=== PATIENT | male | born 1930 | race Caucasian/White ===

== ENCOUNTER → 2018-05-06 | Outpatient (CLI) | payer OTHER ==
[~2018-05-06] MED LIST: ADULT LOW DOSE81 MG; ARIXTRA IJ; ASPIRIN EC81 M1 PO; BENTYL 10 MG CA10 M1 PO; CIPROFLOXACIN500 M1; FLAGYL500 MG; K-DUR10 MEQ PO; LASIX 20 MG TAB20 MG PO; LOPRESSOR PO; LOPRESSOR100 MG PO; LOPRESSOR25; NORCO 5-325 TA1 EACH; ROXICODONE5 M1; VICODIN 5-3001 EACH; VYTORIN 10-201 EACH PO
--- NOTE | 2018-05-06 15:16 | 2DMMODE ---
[place] [address] 2 D/M-MODE ECHOCARDIOGRAM Name: TC ALMAGUER Room: [facility]#: [id number] Admission: 05/06/18 Attend Phys: Anju Mcfadden, Discharge: Date of : [birth year] Date of Service: 05/06/18 1516 Report #: [id number] THIS REPORT FOR: //name// APPROVED REPORT Study performed: 05/06/2018 10:10:18 EXAM: Comprehensive 2D, Doppler, and color-flow Echocardiogram Patient Location: Out-Patient Status: routine BSA: 1.96 HR: 55 bpm BP: 132/65 mmHg Other Information Study Quality: Good Indications CAD Cardiomyopathy 2D Dimensions LVEF(%): 46.53 (>50%) IVSd: 12.53 (7-11mm) LVOT Diam: 20.47 (18-24mm) LVDd: 58.39 mm PWd: 11.29 (7-11mm) Ascending Ao: 31.80 (22-36mm) LVDs: 44.58 (25-40mm) Aortic Root: 31.68 mm Rinaldi's LVEF: 46.53 % Volumes Left Atrial Volume (Systole) LA ESV Index: 19.50 mL/m2 Aortic Valve AoV Peak Tyson.: 1.32 m/s AO Peak Gr.: 6.97 mmHg LVOT Max P.77 mmHg AO Mean Gr.: 3.84 mmHg LVOT Mean P.23 mmHg LVOT Max V: 0.83 m/s AO V2 VTI: 28.69 cm LVOT Mean V: 0.50 m/s MIMI (VTI): 2.07 cm2 LVOT V1 VTI: 18.04 cm Mitral Valve MV Peak Gr.: 4.95 [place] [address] 2 D/M-MODE ECHOCARDIOGRAM Name: TC ALMAGUER Room: [facility]#: [id number] Admission: 05/06/18 Attend Phys: Anju Mcfadden, Discharge: Date of : [birth year] Date of Service: 05/06/18 1516 Report #: [id number] MV Mean Gr.: 2.49 mmHg MV Decel. Time: 213.82 ms MV E Max Tyson.: 0.82 m/s MV PHT: 62.01 ms MVA (PHT): 3.55 cm2 TDI E/Lateral E': 10.25 E/Medial E': 10.25 Medial E' Tyson.: 0.08 m/s Lateral E' Tyson.: 0.08 m/s Pulmonary Valve PV Peak Tyson.: 0.76 m/s PV Peak Gr.: 2.33 mmHg Tricuspid Valve RAP Estimate: 5.00 mmHg TR Peak Gr.: 20.45 mmHg RVSP: 25.45 mmHg PA Pressure: 25.45 mmHg Left Ventricle Left ventricle is mildly dilated. There is global hypokinesis noted. There is normal left ventricular wall thickness. Left ventricular ejection fraction is moderate to severely decreased. LVEF is 30-35%. Grade I - abnormal relaxation pattern. Right Ventricle The right ventricle is normal size. The right ventricular systolic function is normal. Atria The left atrium size is normal. The right atrium size is normal. Aortic Valve The aortic valve is normal in structure. No aortic regurgitation is present. There is no aortic valvular stenosis. Mitral Valve Mitral valve leaflets are calcified. Mild mitral regurgitation. No evidence of mitral valve stenosis. Tricuspid Valve The tricuspid valve is normal in structure. Mild tricuspid regurgitation. No pulmonary hypertension[place] [address] 2 D/M-MODE ECHOCARDIOGRAM Name: LAURAJENNIFERTC Jeison Room: [facility]#: [id number] Admission: 05/06/18 Attend Phys: Anju Mcfadden, Discharge: Date of : [birth year] Date of Service: 05/06/18 1516 Report #: [id number] The pulmonary valve is normal in structure. Mild pulmonic regurgitation. Great Vessels The aortic root is normal in size. IVC is normal in size and collapses with >50% inspiration Pericardium There is no pericardial effusion. <Conclusion> Left ventricle is mildly dilated. There is normal left ventricular wall thickness. Left ventricular ejection fraction is moderate to severely decreased. LVEF is 30-35%. Grade I - abnormal relaxation pattern. There is global hypokinesis noted. Mild mitral regurgitation. Mild tricuspid regurgitation. No pulmonary hypertension. Mild pulmonic regurgitation. <ELECTRONICALLY SIGNED> By: Sandor Mederos MD, FACC 05/06/18 151 15 15 Sandor Mederos MD, FACC /INF
== END ==
LOC: M.CRD 05-05 09:00
DX: I08.1 Rheumatic disorders of both mitral and tricuspid valves (principal); I25.10 Atherosclerotic heart disease of native coronary artery without angina pectoris; I25.5 Ischemic cardiomyopathy

== ENCOUNTER 2019-08-11 17:47 | Inpatient (IN) | payer OTHER ==
[~2019-08-11] VITALS: Ht 162.6 cm; Wt 80.7 kg
[2019-08-11 17:50] VITALS: BP 141/86
[2019-08-11] MEDS ORDERED: FUROSEMIDE 40 M40 MG PO (18:02)
[2019-08-11] MEDS ORDERED: ROSUVASTATIN CA10 MG PO (18:03)
[2019-08-11] MEDS ORDERED: VITAMIN D310 MC1 PO (18:03)
[2019-08-11] MEDS ORDERED: SPIRONOLACTONE25 MG PO (18:03)
[2019-08-11] MEDS ORDERED: POTASSIUM GLUC500 MG PO (18:04)
[2019-08-11 18:14] LABS: ABSOLUTE BASOPHILS 0.1 thou/uL (0.0-0.2); ABSOLUTE EOSINOPHILS 0.1 thou/uL (0.0-0.7); ABSOLUTE LYMPHOCYTES 1.4 thou/uL (0.8-5.3); ABSOLUTE MONOCYTES 1.2 thou/uL (0.0-1.2); ABSOLUTE NEUTROPHILS 7.1 thou/uL (1.6-8.1); BASOPHILS 0.9 %; EOSINOPHILS 0.5 %; HEMATOCRIT 38.2 % (42.0-52.0); HEMOGLOBIN 12.9 gm/dL (14.0-18.0); LYMPHOCYTES 14.2 %; MCH 31.9 pg (26.0-34.0); MCHC 33.9 g/dL (28.0-37.0); MONOCYTES 12.2 %; MPV 8.4 fl. (7.2-11.1); NUCLEATED RBCS 0 /100WBC; PLATELET COUNT* 140 thou/uL (150-400); POLYS 72.2 %; RBC 4.06 mil/uL (4.50-6.00); RDW-CV 14.5 % (10.5-14.5); WBC 9.9 thou/uL (4.0-11.0)
[2019-08-11 18:27] LABS: APTT 29.2 Seconds (25.0-31.3); PROTIME 10.7 Seconds (9.20-11.50)
[2019-08-11 18:59] LABS: CREATININE 1.9 mg/dL (0.6-1.3); POTASSIUM 4.6 mmol/L (3.5-5.1)
[2019-08-11 19:05] LABS: ALBUMIN 3.8 g/dL (3.4-5.0); TOTAL BILIRUBIN 1.4 mg/dL (<0.1-1.0); TOTAL PROTEIN 7.4 g/dL (6.4-8.2)
[2019-08-11 20:49] VITALS: BP 134/84
[2019-08-11 21:07] VITALS: BP 110/74
[2019-08-12] VITALS: BP 104/62
[2019-08-12 04:00] VITALS: BP 116/69
--- NOTE | 2019-08-12 07:44 | NUR ---
PT ADMITTED TO ROOM 212 DURING BOTTLE DEALER; VSS, A+OX4, ROOM AIR, SR+BBB, UP AD JUDSON. 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 HE HAS DENIED THE NEED FOR PAIN MEDICATION UP TO THIS TIME. HE HAS BEEN NPO SINCE MIDNIGHT FOR A CARDIOLOGY CONSULT LATER THIS AM.
[2019-08-12 08:00] VITALS: BP 122/51
[2019-08-12 11:44] VITALS: BP 110/53
--- NOTE | 2019-08-12 12:57 | NUR ---
Pt is A&O. Pt resides at [facility] in [place] with his . Pt is independent. Pt states that they prepare most of their meals, there is a dining area that they can go to if they want. [facility] provides cleaning every 2 weeks. No DME. No hx of HH or SNF. Supportive family. Goal is home at [place]. No needs anticipated.
--- NOTE | 2019-08-12 13:52 | 2DMMODE ---
[place] [address] 2 D/M-MODE ECHOCARDIOGRAM Name: TC ALMAGUER Room: [address] IN [facility]#: [id number] Admission: 08/11/19 Attend Phys: Bijal elaine Sa Discharge: Date of : [birth year] Date of Service: 08/12/19 1352 Report #: [id number] THIS REPORT FOR: //name// APPROVED REPORT Study performed: 08/12/2019 11:20:47 EXAM: Comprehensive 2D, Doppler, and color-flow Echocardiogram Patient Location: In-Patient Room #: [facility] BSA: 1.85 HR: 91 bpm BP: 122/51 mmHg Other Information Study Quality: Good Indications Congestive Heart Failure Dyspnea Elevated Troponin 2D Dimensions IVSd: 11.02 (7-11mm) LVOT Diam: 22.11 (18-24mm) LVDd: 59.03 mm PWd: 10.72 (7-11mm) Ascending Ao: 34.31 (22-36mm) LVDs: 49.48 (25-40mm) Aortic Root: 35.09 mm Volumes Left Atrial Volume (Systole) LA ESV Index: 68.60 mL/m2 Aortic Valve AoV Peak Tyson.: 1.46 m/s AO Peak Gr.: 8.52 mmHg LVOT Max P.14 mmHg AO Mean Gr.: 4.87 mmHg LVOT Mean P.29 mmHg LVOT Max V: 1.02 m/s AO V2 VTI: 23.61 cm LVOT Mean V: 0.70 m/s MIMI (VTI): 3.30 cm2 LVOT V1 VTI: 20.29 cm Mitral Valve MV Decel. Time: 132.39 ms MV PHT: 38.39 [place] [address] 2 D/M-MODE ECHOCARDIOGRAM Name: TC ALMAGUER Room: [address] IN ..#: [id number] Admission: 08/11/19 Attend Phys: Biajl elaine Discharge: Date of : [birth year] Date of Service: 08/12/19 1352 Report #: [id number] MVA (PHT): 5.73 cm2 TDI Medial E' Tyson.: 0.12 m/s Lateral E' Tyson.: 0.17 m/s Pulmonary Valve PV Peak Tyson.: 0.83 m/s PV Peak Gr.: 2.78 mmHg Tricuspid Valve RAP Estimate: 5.00 mmHg TR Peak Gr.: 22.03 mmHg RVSP: 27.00 mmHg PA Pressure: 27.00 mmHg Left Ventricle Left ventricle is mildly dilated. There is diffuse hypokinesis of left ventricular wall motion. There is normal left ventricular wall thickness. Left ventricular systolic function is severely decreased. LVEF is 25%. Right Ventricle The right ventricle is normal size. The right ventricular systolic function is normal. Atria Left atrium is moderately dilated. The right atrium size is normal. Aortic Valve Mild aortic valve sclerosis. No aortic regurgitation is present. There is no aortic valvular stenosis. Mitral Valve The mitral valve is normal in structure. Mild mitral regurgitation. No evidence of mitral valve stenosis. Tricuspid Valve The tricuspid valve is normal in structure. Trace tricuspid regurgitation. No pulmonary hypertension. Pulmonic Valve The pulmonary valve is normal in structure. There is no pulmonic valvular regurgitation. Great Vessels The aortic root is normal in size. IVC is [place] [address] 2 D/M-MODE ECHOCARDIOGRAM Name: TC ALMAGUER Room: [address] IN .R.#: [id number] Admission: 08/11/19 Attend Phys: Bijal elaine Sa Discharge: Date of : [birth year] Date of Service: 08/12/19 1352 Report #: [id number] collapses >50% with inspiration. Pericardium There is no pericardial effusion. Left pleural effusion. <Conclusion> Left ventricle is mildly dilated. There is normal left ventricular wall thickness. Left ventricular systolic function is severely decreased. LVEF is 25%. The right ventricle is normal size. The right ventricular systolic function is normal. Left atrium is moderately dilated. The right atrium size is normal. Mild aortic valve sclerosis. No aortic regurgitation is present. There is no aortic valvular stenosis. The mitral valve is normal in structure. Mild mitral regurgitation. The tricuspid valve is normal in structure. IVC is normal in size and collapses >50% with inspiration. There is no pericardial effusion. There is diffuse hypokinesis of left ventricular wall motion. <ELECTRONICALLY SIGNED> By: Huey Yeung MD, FACC 08/12/19 1352 1352 135 Huey Yeung MD, FACC /INF
--- NOTE | 2019-08-12 14:05 | EKG ---
[place] [address] ELECTROCARDIOGRAM REPORT Name: TC ALMAGUER Room: [address] ADM IN M.R.#: [id number] Admission: 08/11/19 Attend Phys: Bijal Tena Discharge: Date of : [birth year] Report #: [id number] THIS REPORT FOR: //name// [facility] ED Test Date: 2019-08-11 Test Time: 17:56:31 Pat Name: TC ALMAGUER Department: Room: [facility] Gender: M Barrel Header: CLINT : 1930 Requested By: Conner Spencer Order Number: [id number] MD: Huey Yeung Measurements Intervals [place] Rate: 99 P: 0 CA: 153 QRS: 129 QRSD: 141 T: 114 QT: 276 QTc: 355 Interpretive Statements Sinus tachycardia with first degree block Multiform ventricular premature complexes RBBB and LPFB Anteroseptal infarct, age indeterminate Baseline wander in lead(s) III,aVL Compared to ECG 09/21/2012 09:24:52 Ventricular premature complex(es) now present Left posterior fascicular block now present Sinus rate has increased First degree AV block persists Left-axis deviation no longer present Myocardial infarct finding still present Electronically Signed On 08-12-2019 14:04:59 JIG BORE OPERATOR by Huey Yeung [email or web address] <ELECTRONICALLY SIGNED> By: Huey Yeung MD, [facility] 08/12/19 1404 1756 1756 Huey Yeung MD, [facility] /EPI
[2019-08-12 16:49] VITALS: BP 98/47
--- NOTE | 2019-08-12 18:19 | NUR ---
PT A/O X4,VSS,INTERNAL REVENUE AGENT IN PLACE.NO C/O PAIN.ECHO COMPLETED.LASIX GIVEN THIS AM.PT WILL BE NPO AT MIDNIGHT FOR STRESS TEST IN AM.PT INFORMED OF NO CAFFEINE OR CHOCOLATE BEFORE STRESS TEST.PT COMMUNICATES UNDERSTANDING.PT AMBULATED IN ROOM THROUGHTOUT SHIFT.HOURLY ROUNDING COMPELTED FOR PT SAFETY.CALL LIGHT WITHIN REACH.WILL CONTINUE TO MONITOR FOR DURATION OF SHIFT.
[2019-08-12 20:14] VITALS: BP 106/50
[2019-08-13] VITALS: BP 122/47
[2019-08-13 04:00] VITALS: BP 106/57
[2019-08-13 05:15] LABS: CALCIUM 8.8 mg/dL (8.5-10.1); CREATININE 2.4 mg/dL (0.6-1.3); POTASSIUM 4.9 mmol/L (3.5-5.1)
--- NOTE | 2019-08-13 07:49 | NUR ---
PT IS ABLE TO COMMUNICATE HIS NEEDS TO STAFF WITH ONLY MINOR DIFFICULTY; HE IS [id number], BUT DOES HAVE HEARING AIDS. HE HAS DENIED THE NEED FOR PAIN MEDICATION UP TO THIS TIME. HE HAS BEEN NPO SINCE MIDNIGHT FOR TENTATIVELY SCHEDULED STRESS TEST LATER TODAY. ECHO SHOWED EF OF LESS THAN 40%, SO CHF CORE MEASURES ARE IN EFFECT; MD IS AWARE. POSSIBLE DISCHARGE LATER TODAY.
[2019-08-13 08:00] VITALS: BP 118/74
--- NOTE | 2019-08-13 08:00 | NUR ---
ASSUMED PT CARE AT 0700, PT A&O X4, UP AD JUDSON, VSS, RA, COMMUNITY HEALTH OUTREACH WORKER TRACING SINUS RHYTHM WITH PVC'S, FULL ASSESSMENT CHARTED. PT TO HAVE NUC MED STRESS TEST THIS SHIFT, PT EDUCATED ON NPO STATUS, TOLERATING WELL WITH WATER ONLY. WILL CONT HOURLY ROUNDING AND POC.
[2019-08-13 12:05] VITALS: BP 111/70
--- NOTE | 2019-08-13 12:54 | CARDNUC ---
[place] [address] CARDIAC NUCLEAR IMAGING REPORT Name: TC ALMAGUER Room: [address] IN [facility]#: [id number] Admission: 08/11/19 Attend Phys: Bijal elaine Sa Discharge: Date of : [birth year] Date of Service: 08/13/19 1253 Report #: [id number] THIS REPORT FOR: //name// APPROVED REPORT Imaging Protocol: Rest Tc-99m/Stress Tc-99m 1 day Study performed: 08/12/2019 11:44:00 Indication: Dyspnea Patient Location: Out-Patient Stress Tech: Jennifer Ayala Stress Nurse: Kelly Guerrero RN Ht: 5 ft 4 in Wt: 176 lbs BSA: 1.85 m2 BMI: 30.20 Medical History Medical History: mi, cabg, cad, pci, htn, chf, cardiomayopathy Medications: none Allergies: penicillin Cardiac Risk Factors: age, htn,former smoker Previous Cardiac Procedures: CABG, PCI, Myocardial infarction Exercise History: Indeterminate Resting Data Rest SPECT myocardial perfusion imaging was performed in supine position 45 minutes following the intravenous injection of 11.6 mCi of Tc-99m Sestamibi. Time of rest injection: 08:00 The images were gated to evaluate regional wall motion and calculate left ventricular ejection fraction. Administration Route: IV Administration Site: Left AC Pharmacologic Stress Pharmacologic stress test was performed by injecting Regadenoson 0.4 mg IV push over 10-15 seconds immediately followed by the intravenous injection of 33.1 mCi of Tc-99m Sestamibi. Time of stress injection: 11.6 Administration Route: IV Administration Site: Left AC Heart Rate at time of stress injection: 103 bpm. Gated Stress SPECT was performed 45 [place] [address] CARDIAC NUCLEAR IMAGING REPORT Name: TC ALMAGUER Room: [address] IN ..#: [id number] Admission: 08/11/19 Attend Phys: Bijal elaine Sa Discharge: Date of : [birth year] Date of Service: 08/13/19 1253 Report #: [id number] injection. The images were gated to evaluate regional wall motion and calculate left ventricular ejection fraction. Stress Test Details Stress Test: Pharmacologic stress testing performed using 0.4 mg of regadenoson per 5 mL given IV over 10 seconds. Reason for pharmacologic stress test: LBBB. HR Max Heart Rate (APMHR): 131 bpm Resting HR: 94 bpm Target HR (85% APMHR): 111 bpm Max HR Achieved: 103 bpm % of APMHR: 78 Recovery HR: 98 bpm BP Resting BP: 111/65 mmHg Max BP: 131/70 mmHg Recovery BP: 126/80 mmHg ECG Resting ECG: Sinus Rhythm, RBBB Stress ECG: Sinus Rhythm, RBBB ST Change: None Arrhythmia: None Recovery ECG: Sinus Rhythm, RBBB Recovery ST Change: None Recovery Arrhythmia: None Clinical Reason for Termination: Completed protocol Exercise duration: 0 min sec Exercise capacity: 1 METs The patient tolerated Lexiscan infusion without significant cardiac symptoms. Stress ECG Conclusion The baseline 12-lead EKG shows sinus rhythm with right bundle-branch block. No acute ST segment abnormalities were noted. EKGs during and post Lexiscan infusion show sinus rhythm and sinus tachycardia with persistent right bundle-branch block. There were no significant ST segment changes when compared to baseline. There were no stress-induced arrhythmias Study Quality Study: Good Artifact: [place] [address] CARDIAC NUCLEAR IMAGING REPORT Name: TC ALMAGUER Room: [address]#: [id number] Admission: 08/11/19 Attend Phys: Bijal elaine Sa Discharge: Date of : [birth year] Date of Service: 08/13/19 1253 Report #: [id number] Study Data At rest, the left ventricular ejection fraction was 25%.. Post stress, the left ventricular ejection was 24%.. TID = 1.06. Perfusion There is a moderate size severe intensity fixed defect of the apex consistent with prior infarct. There is a moderate size basal inferior wall defect that appears slightly more pronounced on stress than resting images suggesting infarct with anupama-infarct ischemia. Wall Motion The left ventricle is dilated. There is severe global hypokinesis with akinesis of the basal inferior wall and apex. Nuclear Conclusion ECG Findings: negative for ischemia Clinical Findings: negative for ischemia Nuclear Findings: positive for ischemia Exercise Capacity: not assessed Left Ventricular Function: abnormal Risk Study: high Perfusion images suggest prior infarct of the apex and basal inferior wall with a region of anupama-infarct ischemia in the inferior wall. Global LV systolic function is severely decreased with wall motion abnormalities as outlined above. This is a high risk study. <Conclusion> The baseline 12-lead EKG shows sinus rhythm with right bundle-branch block. No acute ST segment abnormalities were noted. EKGs during and post Lexiscan infusion show sinus rhythm and sinus tachycardia with persistent right bundle-branch block. There were no significant ST segment changes when compared to baseline. There were no stress-induced arrhythmias <ELECTRONICALLY SIGNED> By: Sandor Mederos MD, FACC 08/13/19 1253 1253 1253 Sandor Mederos MD, FACC /INF
--- NOTE | 2019-08-13 16:03 | NUR ---
ASSUMED CARE OF PT AT APPROXIMATELY 1600. REPORT RECEIVED FROM SALIMA MELISSA. 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 PT TRACING SR WITH BBB AND FIRST DEGREE ON THE FRUIT II FARMWORKER. UP AD JUDSON IN ROOM. ON RA SAT UPPER 90'S. DENIES ANY PAIN OR SHORTNESS OF BREATH. NPO AFTER MIDNIGHT FOR POSSIBLE HEART CATH IN AM. IV FLUIDS INFUSING. MEDICATIONS PER OCT. PT REPOSITIONS SELF. HOURLY ROUNDING OBSERVED. BED IN LOW POSITION. CALL LIGHT WITHIN REACH. WILL CONTINUE PLAN OF CARE.
[2019-08-13 16:34] VITALS: BP 128/76
[2019-08-13 20:39] VITALS: BP 123/69
[2019-08-14] VITALS: BP 89/57
[2019-08-14 04:00] VITALS: BP 104/69
[2019-08-14 08:00] VITALS: BP 120/70
[2019-08-14 08:51] LABS: CALCIUM 8.4 mg/dL (8.5-10.1); CREATININE 2.5 mg/dL (0.6-1.3); POTASSIUM 4.6 mmol/L (3.5-5.1)
--- NOTE | 2019-08-14 08:53 | NUR ---
PT IS ABLE TO COMMUNICATE HIS NEEDS TO STAFF WITH MINOR DIFFICULTY; HE IS [id number], BUT DOES HAVE HEARING AIDS. HE HAS DENIED THE NEED FOR PAIN MEDICATION UP TO THIS TIME. HE HAS REPORTED SOME SORENESS IN HIS THROAT WHICH WAS RELIEVED BY COUGH DROPS. HE HAS BEEN NPO AFTER MIDNIGHT FOR A POSSIBLE CARDIAC CATH LATER TODAY.
[2019-08-14 12:00] VITALS: BP 109/59
[2019-08-14 16:00] VITALS: BP 112/66
[2019-08-14 20:00] VITALS: BP 110/60
[2019-08-15] VITALS: BP 90/54
[2019-08-15 04:00] VITALS: BP 92/56
[2019-08-15 05:33] LABS: CALCIUM 8.2 mg/dL (8.5-10.1); CREATININE 2.4 mg/dL (0.6-1.3); POTASSIUM 4.5 mmol/L (3.5-5.1)
--- NOTE | 2019-08-15 07:53 | NUR ---
ASSUMED CARE OF PT AFTER REPORT AT 1930. PT A&OX4. VSS. PHYSICAL ASSESMENT COMPLETED AND CHARTED. PT ON RA. PT TRACING SR/1ST DEG/BBB ON TELE. PT UPADLIB TO RESTROOM. PT DENIES ANY PAIN. PT ABLE TO SLEEP WELL ON BED. CALL LIGHT WITHIN REACH.
[2019-08-15 08:00] VITALS: BP 101/59
[2019-08-15 08:10] LABS: ABSOLUTE LYMPHOCYTES 0.8 thou/uL (0.8-5.3); ABSOLUTE NEUTROPHILS 7.2 thou/uL (1.6-8.1); BASOPHILS 0.1 %; HEMATOCRIT 32.6 % (42.0-52.0); HEMOGLOBIN 11.2 gm/dL (14.0-18.0); LYMPHOCYTES 9.2 %; MCH 32.5 pg (26.0-34.0); MCHC 34.2 g/dL (28.0-37.0); MCV 94.8 fL (80.0-100.0); MONOCYTES 11.1 %; MPV 8.3 fl. (7.2-11.1); NUCLEATED RBCS 0 /100WBC; PLATELET COUNT* 115 thou/uL (150-400); POLYS 79.6 %; RBC 3.44 mil/uL (4.50-6.00); RDW-CV 14.4 % (10.5-14.5)
[2019-08-15 08:16] LABS: CALCIUM 8.3 mg/dL (8.5-10.1); CREATININE 2.4 mg/dL (0.6-1.3); POTASSIUM 4.3 mmol/L (3.5-5.1)
[2019-08-15 13:59] VITALS: BP 92/48
--- NOTE | 2019-08-15 19:23 | NUR ---
ASSUMED PT CARE AT 0700, VSS, RA, UP AD JUDSON, ENTRY SPECIALIST TRACING SINUS RHYTHM, PVC'S, BBB, FIRST DEGREE AV BLOCK, FULL ASSESSMENT CHARTED. PT EDUCATED ON FLUID RESTRICTION AND STRICT I/O'S, HOURLY ROUNDING COMPLETED.
[2019-08-15 20:00] VITALS: BP 86/48
[2019-08-16] VITALS: BP 90/59
[2019-08-16 04:00] VITALS: BP 98/65
[2019-08-16 04:15] LABS: ABSOLUTE LYMPHOCYTES 0.7 thou/uL (0.8-5.3); ABSOLUTE MONOCYTES 0.9 thou/uL (0.0-1.2); ABSOLUTE NEUTROPHILS 7.2 thou/uL (1.6-8.1); BASOPHILS 0.2 %; EOSINOPHILS 0.2 %; HEMATOCRIT 31.2 % (42.0-52.0); HEMOGLOBIN 10.9 gm/dL (14.0-18.0); LYMPHOCYTES 7.8 %; MCH 32.9 pg (26.0-34.0); MCV 93.9 fL (80.0-100.0); MONOCYTES 10.5 %; MPV 8.3 fl. (7.2-11.1); NUCLEATED RBCS 0 /100WBC; PLATELET COUNT* 105 thou/uL (150-400); POLYS 81.3 %; RBC 3.32 mil/uL (4.50-6.00); RDW-CV 14.2 % (10.5-14.5); WBC 8.8 thou/uL (4.0-11.0)
[2019-08-16 04:30] LABS: ALBUMIN 3.1 g/dL (3.4-5.0); CALCIUM 7.8 mg/dL (8.5-10.1); CREATININE 2.2 mg/dL (0.6-1.3); POTASSIUM 4.3 mmol/L (3.5-5.1); TOTAL BILIRUBIN 2.2 mg/dL (<0.1-1.0); TOTAL PROTEIN 5.9 g/dL (6.4-8.2)
--- NOTE | 2019-08-16 06:00 | NUR ---
PROGRESSING TOWARDS GOALS, C/O SOA X1, OXYGEN 2L PER NC INITATED AND RESOLVED SOA, SAO2 95% ON 2L PER NC, MAINTAINED 1750CC FLUID RESTRICTION 24/HOURS, AWAKE ALERT AND CONVERSATIVE, CALLLIGHT IN REACH, SAFETY MAINTAINED.
[2019-08-16 07:45] VITALS: BP 119/72
[2019-08-16 11:06] LABS: URINE BILIRUBIN NEGATIVE (Negative); URINE BLOOD TRACE (Negative); URINE CLARITY CLEAR; URINE COLOR YELLOW; URINE GLUCOSE-RANDOM NEGATIVE (Negative); URINE KETONES NEGATIVE (Negative); URINE LEUKOCYTES NEGATIVE (Negative); URINE NITRITE NEGATIVE (Negative); URINE PROTEIN NEGATIVE (Negative); URINE SPECIFIC GRAVITY 1.015 (1.005-1.030); URINE UROBILINOGEN 0.2 E.U./dl (0.2-1.0)
[2019-08-16 12:00] VITALS: BP 120/72
[2019-08-16 16:04] VITALS: BP 124/64
[2019-08-16 20:00] VITALS: BP 109/68
--- NOTE | 2019-08-16 20:05 | NUR ---
ASSUMED PT CARE AT 0730, ASSESMENT DONE CHARTED. PT A/O X4, UP AD JUDSON, ON 2L O2 THIS AM, PT ABLE TO TOLERATED RA AT 94%, AMBULATES IN HALLWAY MULTIPLE TIMES TODAY. NO SOA. PT READY TO DC HOME TOMORROW. NPO AFTER MIDNIGHT FOR ABD US TOMORROW. REPORT GIVEN TO RENATA BORREGO.
[2019-08-17] VITALS: BP 102/75
--- NOTE | 2019-08-17 03:24 | NUR ---
PT ALERT ORIENTED ORIENTED. NPO AT ID FOR ABD US. TELEMETRY SHOWS SR BBB 1ST DEGREE AVB PVC. ON 1750ML FR. UP AD JUDSON IN ROOM. ON RA. WCTM
[2019-08-17 04:00] VITALS: BP 111/66
[2019-08-17 05:18] LABS: CALCIUM 7.6 mg/dL (8.5-10.1); CREATININE 1.9 mg/dL (0.6-1.3); POTASSIUM 3.6 mmol/L (3.5-5.1)
[2019-08-17 05:29] LABS: MAGNESIUM 2.1 mg/dL (1.8-2.4)
[2019-08-17 08:00] VITALS: BP 100/53
[2019-08-17] MEDS ORDERED: LIPITOR40 MG PO (11:35)
[2019-08-17] MEDS ORDERED: BUMETANIDE 1 MG1 M1 PO (11:36)
[2019-08-17 12:01] VITALS: BP 126/71
--- NOTE | 2019-08-21 09:24 | CON ---
[address] [address] CONSULTATION Name: TC ALMAGUER Room: [address] IN M.R.#: [id number] Admission: 08/11/19 Attend Phys: Bijal Tena Discharge: 08/17/19 Date of : [birth year] Report #: [id number] THIS REPORT FOR: //name// CC: Bijal Lee Jonah Petitluh DATE OF SERVICE: 08/15/2019 NEPHROLOGY CONSULTATION CONSULTING PHYSICIAN: Dr. Lee. REASON FOR NEPHROLOGY CONSULTATION: Acute kidney injury on possible chronic kidney disease. REASON FOR ADMISSION: Shortness of breath. HISTORY OF PRESENT ILLNESS: This is a very active 89-year-old male who lives with his at [facility] with past medical history of coronary artery disease with reported [place] and CABG, which was 23 years ago, ejection fraction of 30-35%, came in because of increasing shortness of breath, which started about 7 weeks ago. Seven weeks ago, he went to his primary doctor, who put him on Lasix 40 mg a day, which the patient initially took for 3 days, felt relief and his shortness of breath improved, so he was given a prescription for Lasix 40 mg a day. He did lose weight from 190 pounds to 173 pounds in these last several weeks with Lasix, but his breathing, which initially got better, started getting worse again. He tries to watch and eat a low sodium diet. He was not on fluid restriction before coming to the hospital. Here on arrival, his creatinine was 1.9. Back in 2012, his creatinine was 1.2. We do not have any membranes in between. He was started on Lasix 40 mg IV twice a day and creatinine went up from 1.9 to 2.4 and hence Nephrology was consulted and his Lasix was stopped and he was started on gentle hydration with which his creatinine has gone down from 2.5 yesterday, 2.4 today. His shortness of breath is difficult to gauge right now because at rest he does not feel short of breath and he has not been exerting much here in the hospital. He does take Aldactone at home as well. Denies taking any NSAIDs at home. Does not ____ any kidney stones. Renal ultrasound is normal here. He has had TURP done in the past and now he does have to push to get the urine out, but his bladder scan revealed only 182 mL of urine yesterday. He is also on a fluid restriction here. A stress test was done here in this hospitalization and that was negative for ischemia, but his ejection fraction has decreased to 25% this time. In the past, he has refused ICD. He has not been able to tolerate beta blockers because of bradycardia and second-degree heart block in the past and he is not on any ROSEMARIE inhibitor or ARB or has not been on it for reasons unknown. ALLERGIES: [place] [address] CONSULTATION Name: TC ALMAGUER Room: [address] IN M.R.#: [id number] Admission: 08/11/19 Attend Phys: Bijal Tena Discharge: 08/17/19 Date of : [birth year] Report #: [id number] REVIEW OF SYSTEMS: As mentioned in history of present illness, otherwise 10-point review of systems was reviewed and was negative. HOME MEDICATIONS: Include furosemide 1 tablet daily of 40 mg, vitamin D3, spironolactone 25 mg once daily, potassium chloride 500 mg daily, aspirin. PAST MEDICAL AND SURGICAL HISTORY: Includes hypertension, diverticulosis, right shoulder surgery, appendectomy, right and left total knee replacement. Three bypasses in 1983. CABG in 1993, hernia repair, and bowel resection. FAMILY HISTORY: No family history of kidney problem. SOCIAL HISTORY: He lives with his at [facility]. He is a former smoker, does not take alcohol or use illicit drugs. PHYSICAL EXAMINATION: VITAL SIGNS: Blood pressure is 92/56, his pulse was 61, temperature 36.4, respiratory rate was 17, and pulse oximetry was 100% on room air. GENERAL: He is awake, alert, oriented x 3, sitting in chair. HEAD AND EYES: Atraumatic, normocephalic. Normal conjunctivae. EARS, NOSE, AND THROAT: Normal ears and nose. Mucous membranes are moist. NECK: There is JVD. CHEST: Bilaterally diminished breath sounds posteriorly. Crackles heard posteriorly at basal level. CARDIOVASCULAR: S1, S2 normal, no murmurs noted. ABDOMEN: Soft, nondistended, nontender. Bowel sounds present. EXTREMITIES: There is around 2+ edema bilateral ankles. NEUROLOGICAL FUNCTION: Gross neurological function is intact. PSYCHIATRIC: Mood and affect seem to be normal. LABORATORY DATA: His hemoglobin is 12.9 and his platelet count is 140. His sodium is 139, potassium 4.5. His creatinine is 2.4. His BUN is 82 and his CO2 is 26. Other labs are reviewed. IMAGING: Renal ultrasound, chest CT, nuclear stress test and chest x-ray were all reviewed. ASSESSMENT: 1. Acute kidney injury on most likely chronic kidney disease in the setting of decreased ejection fraction, cardiorenal syndrome, this is likely renal vascular congestion. Baseline creatinine is normal, creatinine was 1.9 on admission. We will need to find baseline creatinine. UA has not been checked. Renal imaging was normal, creatinine was 1.9 on admission, went up to 2.5 on diuretic and now it is stable, even with IV fluids. 2. Ischemic cardiomyopathy and runwz-ep-tjrkwyi systolic congestive heart [address] [address] CONSULTATION Name: TC ALMAGUER Room: [address] IN [place].Nestor.#: [id number] Admission: 08/11/19 Attend Phys: Bijal elaine [place] Discharge: 08/17/19 Date of : [birth year] Report #: [id number] failure, ejection fraction has decreased from before, where it used to be 30-35% and now 25%. Stress test demonstrates prior infarction with anupama-infarct ischemia and angiogram is being deferred to a later time until his kidney function gets better. 3. Dyslipidemia. He is on a statin. 4. Hypertension. Blood pressure is currently running slightly on the lower side. He is on Imdur currently. PLAN: 1. The patient currently looks hypervolemic and I will be stopping the IV fluids. 2. I have changed his fluid restriction to 1750 mL a day. 3. He should be on 2 g sodium diet and strict I's and O's should be recorded. 4. The patient was not retaining urine. 5. Initiated him on Bumex 1 mg twice a day, diuretic always looks better on twice a day regimen and his creatinine did go up with a diuretic, but maybe he just need a low dose of diuretic. 6. Please try to find out his medical records and his baseline creatinine. 7. Also check a UA. 8. He is already on Flomax. Thank you for this consultation. Discussed with the patient and the patient's nurses and we will continue to follow along with you. The patient should be monitored over the weekend to determine a good diuretic regimen for him. <ELECTRONICALLY SIGNED> By: Itzel Farris MD 08/21/19 0924 [id number] Farris MD /nt
== END 2019-08-17 14:15 | disposition home or self-care (01) | DRG 280 ==
LOC: M.ERS 17:47 → M.2W 18:51 → M.TBA-ER 18:51 → M.2W 21:00
PROVIDERS: Family Medicine; Internal Medicine; Internal Medicine Nephrology; Registered Nurse; ADMIT Family Medicine
DX: I21.A1 Myocardial infarction type 2 (principal); J96.01 Acute respiratory failure with hypoxia; I50.43 Acute on chronic combined systolic (congestive) and diastolic (congestive) heart failure; N17.9 Acute kidney failure, unspecified; I13.0 Hypertensive heart and chronic kidney disease with heart failure and stage 1 through stage 4 chronic kidney disease, or unspecified chronic kidney disease; Z96.653 Presence of artificial knee joint, bilateral; K57.90 Diverticulosis of intestine, part unspecified, without perforation or abscess without bleeding; I44.1 Atrioventricular block, second degree; N18.9 Chronic kidney disease, unspecified; I25.5 Ischemic cardiomyopathy; E78.5 Hyperlipidemia, unspecified; Z87.891 Personal history of nicotine dependence; Z79.82 Long term (current) use of aspirin; Z95.1 Presence of aortocoronary bypass graft; Z88.0 Allergy status to penicillin; Z90.49 Acquired absence of other specified parts of digestive tract; Z79.899 Other long term (current) drug therapy

== ENCOUNTER 2019-09-29 00:27 | Inpatient (IN) | payer MEDICARE ==
[~2019-09-29] VITALS: Ht 162.6 cm; Wt 74.8 kg
[~2019-09-29 00:27] MED LIST changes: +BUMETANIDE 1 MG1 M1 PO; +FUROSEMIDE 40 M40 MG PO; +LIPITOR40 MG PO; +POTASSIUM GLUC500 MG PO; +ROSUVASTATIN CA10 MG PO; +SPIRONOLACTONE25 MG PO; +VITAMIN D310 MC1 PO
[2019-09-29 00:38] VITALS: BP 131/85
[2019-09-29 01:18] LABS: ABSOLUTE BASOPHILS 0.1 thou/uL (0.0-0.2); ABSOLUTE EOSINOPHILS 0.1 thou/uL (0.0-0.7); ABSOLUTE LYMPHOCYTES 1.1 thou/uL (0.8-5.3); ABSOLUTE MONOCYTES 0.9 thou/uL (0.0-1.2); ABSOLUTE NEUTROPHILS 5.6 thou/uL (1.6-8.1); EOSINOPHILS 0.7 %; LYMPHOCYTES 14.5 %; MCH 31.2 pg (26.0-34.0); MCHC 33.3 g/dL (28.0-37.0); MCV 93.8 fL (80.0-100.0); MONOCYTES 11.9 %; MPV 8.7 fl. (7.2-11.1); NUCLEATED RBCS 0 /100WBC; PLATELET COUNT* 118 thou/uL (150-400); POLYS 71.9 %; RBC 3.84 mil/uL (4.50-6.00); RDW-CV 17.8 % (10.5-14.5); WBC 7.8 thou/uL (4.0-11.0)
[2019-09-29 01:30] LABS: CALCIUM 8.1 mg/dL (8.5-10.1); CREATININE 1.7 mg/dL (0.6-1.3); POTASSIUM 4.6 mmol/L (3.5-5.1)
[2019-09-29 01:34] LABS: APTT 29.8 Seconds (25.0-31.3); INR 1.1; PROTIME 11.4 Seconds (9.20-11.50)
[2019-09-29 01:41] LABS: ALBUMIN 3.3 g/dL (3.4-5.0); TOTAL BILIRUBIN 1.9 mg/dL (<0.1-1.0); TOTAL PROTEIN 6.5 g/dL (6.4-8.2)
--- NOTE | 2019-09-29 04:36 | NUR ---
PATIENT PLACED ON HOSPITAL BED AND MOVED TO ROOM 13
--- NOTE | 2019-09-29 07:05 | NUR ---
THIS NURSE RECEIVED REPORT FROM SALIMA MONROE. THIS NURSE TO ASSUME PT CARE AT THIS TIME.
[2019-09-29 08:53] VITALS: BP 127/88
--- NOTE | 2019-09-29 08:53 | NUR ---
THIS NURSE RECEIVED REPORT FROM SALIMA KUMAR WHO IS TO ASSUME PT CARE INPATIENT NURSE.
[2019-09-29 09:54] VITALS: BP 112/80
[2019-09-29 15:36] LABS: CHOLESTEROL 78 mg/dL (<200); HDL CHOLESTEROL 37 mg/dL (>40); LDL CHOLESTEROL 32 mg/dL (<100); TC:HDL 2.1 Ratio (Not establshd); TRIGLYCERIDE 46 mg/dL (<150); VLDL 9 mg/dL (<40)
[2019-09-29 15:37] LABS: SERUM ASSESSMENT Clear
[2019-09-29 15:45] VITALS: BP 106/63
--- NOTE | 2019-09-29 17:42 | NUR ---
PT WAS ADMITTED AROUND 0945 THIS MORNING TO ROOM 225. PT ON 2L NC, VSS, ASSESSMENT CHARTED. PT SON AND AT BEDSIDE. ADMISSION COMPLETED. ORDERS IMPLEMENTED. PT DID WELL THROUGHOUT DAY. EDUCATION DONE ABOUT FLUID RESTRICTION AND SODIUM RESTRICTION. FAMILY AND PT VERBALIZE UNDERSTANDING.
[2019-09-29 20:00] VITALS: BP 97/69
[2019-09-30] VITALS (7 sets, daily range): BP systolic 93–132; BP diastolic 51–83
--- NOTE | 2019-09-30 06:55 | NUR ---
ASSUMED PT CARE AT APPROX 1930. PT IS AWAKE AND ORIENTED X4. VSS ON 2L OF O2/NC-NO DESATURATIONS NOTED. PT DENIES PAIN OF THIS TIME. PRODUCT SUPPORT REPRESENTATIVE IN PLACE TRACING SR, 1st DEGREE BLOCK, BBB. ASSESSMENT DONE AND CHARTED. CALL LIGHT WITHIN REACH. HOURLY ROUNDING DONE FOR PT SAFETY. HIGH FALL PRECAUTIONS IN PLACE.
[2019-09-30 07:31] LABS: CALCIUM 8.2 mg/dL (8.5-10.1); CREATININE 1.8 mg/dL (0.6-1.3); POTASSIUM 4.8 mmol/L (3.5-5.1)
--- NOTE | 2019-09-30 11:15 | NUR ---
MET WITH PT, AND COUSIN TO DISCUSS HOME SITUATION/DC PLANNING. PT LIVES WITH IN INDEPENDENT APT AT [facility]. THEY ARE INDEPENDENT, COOK AND GO TO MEALS SOME. THEY HAVE HOUSECLEANING Q2WKS. PT HASN'T HAD HH OR BEEN TO SNF THERE BUT OPEN TO EITHER IF NEEDED. UPDATE GIVEN TO BRIONNA AT FACILITY, SHE ASKED THAT IF PT NEEDS SNF, THAT REFERRAL BE SENT FOR REVIEW TO HER AT [facility]. PT HAS CANE AND ELECTRIC W/C. IS DPOA, WILL FOLLOW
--- NOTE | 2019-09-30 15:00 | NUR ---
RIGHT BASILIC VESSEL ACCESSED FOR 5 GEORGIAN DUAL LUMEN PICC. LINE PRE-TRIMMED TO 38 CM AND ADVANCED TO THE ZERO JACKSON WITH NO RESISTANCE MET. UPPER ARM CIRCUMFERENCE ABOVE INSERTION SITE= 13". SHERLOCK AND 3CG CONFIMRATION OF TIP TERMINATION AT THE CAVOATRIAL JUNCTION APPRECIATED. GUIDEWIRE REMOVED, LINE FLUSHED AND INSERTION SITE DRESSED. REPORT GIVEN TO GIOVANA BORREGO.
--- NOTE | 2019-09-30 18:18 | NUR ---
PT WAS GIVEN IV LASIX DOSE AFTER DOBUTAMINE AT 5 MCG/KG/MIN WAS INFUSING FOR ABOUT 3 HOURS.
[2019-10-01] VITALS: BP 105/54
[2019-10-01 04:00] VITALS: BP 129/75
--- NOTE | 2019-10-01 05:32 | NUR ---
ASSUMED PT CARE AT APPROX 1930. PT IS AWAKE AND ORIENTED X4. VSS ON 2L OF O2/NC-NO DESATURATIONS NOTED. PT DENIES PAIN OF THIS TIME. REAL ESTATE ASSET MANAGER IN PLACE TRACING SR, 1st DEGREE BLOCK, BBB, PVCs. ASSESSMENT DONE AND CHARTED. PT HAD NONSUSTAINED 8 BEATS OF VTACH. PT DENIES CHEST PAIN. PT IS CLOSELY MONITORED. HIGH FALL PRECAUTIONS IN PLACE. CALL LIGHT WITHIN REACH.
[2019-10-01 08:00] VITALS: BP 119/77
[2019-10-01 10:46] LABS: CALCIUM 7.8 mg/dL (8.5-10.1); CREATININE 2.3 mg/dL (0.6-1.3); POTASSIUM 4.4 mmol/L (3.5-5.1)
[2019-10-01 13:29] VITALS: BP 122/64
[2019-10-01 16:31] VITALS: BP 118/68
--- NOTE | 2019-10-01 16:49 | NUR ---
RE: CHF Medication Teaching Met with pt today to discuss CHF medications. The medications were discussed including things like how/when to take, possible side effects etc. The patient indicates they have no questions at this time. Pharmacy is available if there are further questions/needs. Thank you.
--- NOTE | 2019-10-01 18:48 | NUR ---
ASSUMED PT CARE AT 0700, PT A&O X4, PT REMAINS TACHY, BP STABLE, IT RISK AND ASSURANCE MANAGER TRACING AFIB, LS CLEAR BUT DIMINISHED THROUGHOUT, REMAINS ON 2LPM VIA NC, FULL ASSESSMENT CHARTED. PT CONT ON FLUID RESTRICTIONS AND STRICT I/O'S. PT EDUCATED ON CREATININE LEVEL, NEW ORDERS FROM NEPHROLOGY, AND NPO STATUS POST MIDNIGHT. HOURLY ROUNDING COMPLETED.
[2019-10-01 20:00] VITALS: BP 122/62
[2019-10-01 21:43] LABS: URINE BILIRUBIN NEGATIVE (Negative); URINE BLOOD NEGATIVE (Negative); URINE CLARITY CLEAR; URINE COLOR YELLOW; URINE GLUCOSE-RANDOM NEGATIVE (Negative); URINE KETONES NEGATIVE (Negative); URINE LEUKOCYTES NEGATIVE (Negative); URINE NITRITE NEGATIVE (Negative); URINE PROTEIN 1+ (Negative); URINE SPECIFIC GRAVITY >= 1.030 (1.005-1.030); URINE UROBILINOGEN 0.2 E.U./dl (0.2-1.0)
[2019-10-02] VITALS: BP 115/47
[2019-10-02 04:00] VITALS: BP 95/59
[2019-10-02 04:34] LABS: ALBUMIN 2.8 g/dL (3.4-5.0); CALCIUM 7.5 mg/dL (8.5-10.1); POTASSIUM 4.6 mmol/L (3.5-5.1)
[2019-10-02 08:00] VITALS: BP 141/78
[2019-10-02 11:52] VITALS: BP 123/66
--- NOTE | 2019-10-02 13:33 | NUR ---
CONTINUE TO FOLLOW, PT PLANS TO RETURN TO HIS APT AT [facility]. IF NEEDS SNF THERE AT [facility], WOULD HAVE TO BE ARRANGED AND NOT ABLE TO GO OVER THE WEEKEND. WILL FOLLOW, REMAINS ON LASIX AND DOBUTAMINE GTTS
[2019-10-02 16:13] VITALS: BP 121/71
--- NOTE | 2019-10-02 19:03 | NUR ---
PT VSS, A&OX4, SR,1*BLOCK,BBB & PVCS ON TELE, 1500ML FLUID RES., STRICT I&Os , SBA, POSSESSIONS AND CALL LIGHT WITHIN REACH, HOURLY ROUNDING PERFORMED
[2019-10-02 19:40] VITALS: BP 129/71
[2019-10-03] VITALS: BP 108/65
[2019-10-03 03:30] VITALS: BP 119/60
[2019-10-03 05:09] LABS: CALCIUM 7.7 mg/dL (8.5-10.1); CREATININE 2.1 mg/dL (0.6-1.3); POTASSIUM 4.3 mmol/L (3.5-5.1)
[2019-10-03 08:00] VITALS: BP 120/71
[2019-10-03 12:00] VITALS: BP 104/63
[2019-10-03 15:30] VITALS: BP 104/69
--- NOTE | 2019-10-03 15:56 | NUR ---
VSS, A&OX4, SR TO ST ON TELE WITH 1*AV BLOCK, BBB &PVCs, LASIX DRIP, SBA PIVOTING TO COMMODE AND USES URINAL, STRICT I&OS, 15OOML FLUID RESTRICTION, HOURLY ROUNDING PERFORMED, POSSESSIONS AND CALL LIGHT WITHIN REACH
[2019-10-03 19:40] VITALS: BP 117/71
[2019-10-04] VITALS: BP 105/64
[2019-10-04 04:00] VITALS: BP 127/64
[2019-10-04 05:13] LABS: CALCIUM 7.7 mg/dL (8.5-10.1); POTASSIUM 3.7 mmol/L (3.5-5.1)
--- NOTE | 2019-10-04 07:00 | NUR ---
VSS. SEE MAR. SEE CHARTING. PROGRESSING TOWARDS GOALS. HOURLY ROUNDING FOR SAFETY.
[2019-10-04 08:00] VITALS: BP 108/77
[2019-10-04 12:39] VITALS: BP 106/52
[2019-10-04 16:55] VITALS: BP 118/67
[2019-10-04 19:40] VITALS: BP 121/73
[2019-10-05] VITALS: BP 103/78
[2019-10-05 04:00] VITALS: BP 112/76
[2019-10-05 04:47] LABS: HEMATOCRIT 34.7 % (42.0-52.0); HEMOGLOBIN 11.6 gm/dL (14.0-18.0); MCH 31.3 pg (26.0-34.0); MCHC 33.5 g/dL (28.0-37.0); MCV 93.7 fL (80.0-100.0); MPV 9.5 fl. (7.2-11.1); RBC 3.7 mil/uL (4.50-6.00); RDW-CV 17.3 % (10.5-14.5); WBC 9.4 thou/uL (4.0-11.0)
[2019-10-05 05:02] LABS: CALCIUM 7.8 mg/dL (8.5-10.1); CREATININE 1.9 mg/dL (0.6-1.3); MAGNESIUM 2.2 mg/dL (1.8-2.4); POTASSIUM 3.9 mmol/L (3.5-5.1)
[2019-10-05 08:00] VITALS: BP 104/71
--- NOTE | 2019-10-05 09:42 | CON ---
[address] [address] CONSULTATION Name: TRIPPTC Jeison Room: [address] IN .R.#: [id number] Admission: 09/29/19 Attend Phys: Eric Spivey, Discharge: Date of : [birth year] Report #: [id number] THIS REPORT FOR: //name// cc: Jonah Winchester MD, Matthew D MD ~ THIS REPORT FOR: //name// CC: Jonah Spivey DATE OF SERVICE: 10/02/2019 NEPHROLOGY CONSULTATION CONSULTING PHYSICIAN: Bijal Lee MD REASON FOR NEPHROLOGY CONSULTATION: Fluid overload, acute kidney injury on chronic kidney disease. REASON FOR ADMISSION: Shortness of breath, lower extremity swelling. HISTORY OF PRESENT ILLNESS: This is an 89-year-old male with past medical history of ischemic cardiomyopathy, ejection fraction of 25% in July of last year, coronary artery disease, CABG, chronic kidney disease stage 3, baseline creatinine of 1.92, dyslipidemia, paroxysmal atrial fibrillation, came in because she was feeling more short of breath, having lower extremity swelling and weight gain. He was here in July of last year and at that time, he was diuresed. His ejection fraction at that time was noticed that it had dropped from 35% in the past to 25% at that time. He was supposed to get elective cardiac catheterization this week . The patient had come in to the hospital because he was having difficulty breathing and the above-mentioned complaints. When he was discharged in July, he was discharged on bumetanide. He was taking bumetanide pretty regularly. He was following a 2 g sodium diet and a fluid restriction. He was also taking spironolactone at home. He presented with a creatinine of 1.7 here; creatinine went up to 2.3 during this hospital admission over here with IV Lasix and that is when IV Lasix was held and Nephrology was consulted. His creatinine is at 2.0 at this time and he still has a lot of edema and shortness of breath on exertion. He also apparently had an outpatient episode of nonsustained ventricular tachycardia and Cardiology is evaluating him here for that. He also has a mildly elevated troponin of 0.19 on presentation. His is at his bedside. ALLERGIES: PENICILLIN. REVIEW OF SYSTEMS: As mentioned in history of present illness, otherwise 10-point review [place] [address] CONSULTATION Name: TC ALMAGUER Jeison Room: [address]#: [id number] Admission: 09/29/19 Attend Phys: Eric Spivey, Discharge: Date of : [birth year] Report #: [id number] HOME MEDICATIONS: Include spironolactone, potassium gluconate, bumetanide 1 mg b.i.d., aspirin, cholecalciferol, atorvastatin. FAMILY HISTORY: Noncontributory. PAST MEDICAL AND SURGICAL HISTORY: Includes bowel resection, hernia repair, CABG in 1993, 3 bypasses in 1983, stent in 1981, right and left total knee replacement, appendectomy, hypertension, diverticulosis, right shoulder surgery, chronic kidney disease stage 3, ischemic cardiomyopathy, paroxysmal atrial fibrillation secondary to heart block, dyslipidemia, hypertension. HOME MEDICATIONS: As mentioned above. SOCIAL HISTORY: Lives at home with his . He does not smoke or drink alcohol or use illicit drugs. PHYSICAL EXAMINATION: VITAL SIGNS: His blood pressure is 95/59, respiratory rate is 17, pulse rate is 69, temperature is 36.4 and his pulse ox is on 2 liters of oxygen by nasal cannula 95%. GENERAL: He is awake, alert, oriented x 3, sitting up in bed. HEAD AND EYES: Atraumatic, normocephalic. EARS, NOSE, AND THROAT: Normal ears and nose. Mucous membranes are moist. NECK: There is JVD to the angle of his mandible. CHEST: Shows bilaterally diminished breath sounds posteriorly and crackles heard bilaterally posteriorly. CARDIOVASCULAR: S1, S2 normal. No murmurs. ABDOMEN: Soft. There is a hematoma in the right lower quadrant, otherwise nondistended. Bowel sounds are present. EXTREMITIES: Lower extremities: There is a 2-3+ edema bilateral lower extremities. There is 2+ presacral edema. NEUROLOGICAL FUNCTION: Gross neurological function is intact. PSYCHIATRIC: Mood and affect seem to be normal. LABORATORY DATA: Hemoglobin is 12.0. Sodium is 135, potassium is 4.6, BUN is 57, creatinine is 2.0. Other labs were reviewed. IMAGING: Chest x-ray was reviewed. ASSESSMENT: 1. Chronic kidney disease stage 3. Baseline creatinine is 1.9-2 and creatinine is actually at its baseline and the patient presenting with acute on chronic systolic congestive heart failure. UA reviewed, had 1+ protein, there is no need for renal ultrasound at this time because his creatinine is pretty much at his baseline. Ejection fraction of 25% as documented in July [place] [address] CONSULTATION Name: TC ALMAGUER Room: [address] IN M.Nestor.#: [id number] Admission: 09/29/19 Attend Phys: Eric GonzalezGail Allyssa, Discharge: Date of : 06/23/[birth year] Report #: [id number] 2. Acute on chronic systolic congestive heart failure, ejection fraction 25%. The patient was due to get a cardiac catheterization this week, which is currently on hold and Cardiology is also following. 3. Paroxysmal atrial fibrillation. 4. History of second-degree heart block. 5. Elevated troponins. 6. Hypertension. Blood pressure is controlled. PLAN: 1. Clearly fluid overloaded, we will initiate Lasix drip at 7.5 mg an hour. Strict I's and O's, 2-g sodium diet per day and fluid restriction 1.5 liters a day is okay. 2. His kidney function might actually improve with diuresis. We will just have to follow. 3. In the event of active diuresis and elevated creatinine, we will hold off on spironolactone for now. Bladder scan was done yesterday, which showed only 60 mL of urine. Thank you for this consultation. Try to keep MAP of around 65-70. Avoid nephrotoxic agents. Discussed with the patient and the patient's and the patient's nurse and we will continue to follow along with you. <ELECTRONICALLY SIGNED> By: Itzel Farris MD 10/05/19 0942 [id number] Farris MD /nt
[2019-10-05 12:01] VITALS: BP 154/79
--- NOTE | 2019-10-05 14:37 | NUR ---
CONTINUE TO FOLLOW, MET WITH PT AND TO DISCUSS DC PLANS AGAIN. PT WANTS TO TRY TO RETURN TO HIS APT AT DC AND STATED IF DIDN'T WORK OUT THEN WOULD GO TO 'SNF' AT [facility]. EXPLAINED TO PT AND THAT HE WOULD NEED TO BE INDEPENDENT TO RETURN TO HIS INDP APT AT THE [facility] AND THAT CM COULD ASSIST WITH SETTING UP HH OR EQUIPMENT. HIS STATED 'ALL I HAVE TO DO IS TAKE THE PHONE OFF THE HOOK AND THEY WILL COME.' CALL TO [facility], SPOKE WITH BRIONNA IN ADMISSIONS THERE. SHE PLANS TO COME OUT TO VISIT [facility] PT/ AND ASSESS TOMORROW. FAXED UPDATE TO HER. WILL F/U AFTER TO ASSIST WITH FINAL DC PLAN, ANTICIPATE DC MID WEEK.
[2019-10-05 16:00] VITALS: BP 108/71
--- NOTE | 2019-10-05 16:06 | NUR ---
VSS, AFIB WITH BBB, PVCS ON TELE, UPPER RIGHT ARM 2 LUMEN PICC, A&OX4, HOURLY ROUNDING PERFORMED, POSSESSIONS AND CALL LIGHT WITHIN REACH, 1500ML FLUID RESTRICTION AND STRICT I&OS.
[2019-10-05 23:59] VITALS: BP 98/66
[2019-10-06 03:52] VITALS: BP 102/78
[2019-10-06 05:51] LABS: HEMATOCRIT 34.9 % (42.0-52.0); HEMOGLOBIN 11.8 gm/dL (14.0-18.0); MCH 31.4 pg (26.0-34.0); MCHC 33.9 g/dL (28.0-37.0); MCV 92.6 fL (80.0-100.0); MPV 9.6 fl. (7.2-11.1); RBC 3.77 mil/uL (4.50-6.00); RDW-CV 16.7 % (10.5-14.5); WBC 10.3 thou/uL (4.0-11.0)
[2019-10-06 06:01] LABS: CALCIUM 8.4 mg/dL (8.5-10.1); CREATININE 1.8 mg/dL (0.6-1.3); MAGNESIUM 2.2 mg/dL (1.8-2.4); POTASSIUM 3.2 mmol/L (3.5-5.1)
[2019-10-06 08:00] VITALS: BP 100/71
[2019-10-06 11:56] VITALS: BP 98/41
--- NOTE | 2019-10-06 13:36 | NUR ---
CONTINUE TO FOLLOW, PT HOPES TO GO HOME BY END OF WEEK. HE STATES HE DID WELL WITH THERAPY AND STILL PLANS TO RETURN [place] AT [place] WITH SPOUSE TO HIS APT. BRIONNA/[facility] HAS NOT COME BY YET TODAY
[2019-10-06 16:20] VITALS: BP 91/58
--- NOTE | 2019-10-06 19:12 | NUR ---
VSS, A&OX4, AFIB WITH PVCS BBB, STAND BY ASSIST, PIVOTS TO COMMODE, 1500ML RESTRICTION, STRICT I&OS, HOURLY ROUNDING PERFORMED, POSSESSIONS AND CALL LIGHT WITHIN REACH.
[2019-10-06 19:30] VITALS: BP 91/40
[2019-10-07] VITALS (7 sets, daily range): BP systolic 78–111; BP diastolic 37–72
[2019-10-07 06:12] LABS: HEMATOCRIT 35.4 % (42.0-52.0); MCH 31.1 pg (26.0-34.0); MCHC 33.9 g/dL (28.0-37.0); MCV 91.7 fL (80.0-100.0); RBC 3.86 mil/uL (4.50-6.00); RDW-CV 16.9 % (10.5-14.5); WBC 10.9 thou/uL (4.0-11.0)
[2019-10-07 06:34] LABS: CALCIUM 8.2 mg/dL (8.5-10.1); CREATININE 1.9 mg/dL (0.6-1.3); POTASSIUM 3.4 mmol/L (3.5-5.1)
--- NOTE | 2019-10-07 09:30 | NUR ---
FAXED REFERRAL TO [facility] IN [place], [place]. [phone]. WILL CALL TO CONFIRM BRIONNA/LIAISON RECEIVED AND BED AVAILABILITY.
--- NOTE | 2019-10-07 10:22 | NUR ---
ASSUMED CARE OF PT THIS AM AROUND 0715- OFFICE COORDINATOR IN PlACE ORDERED- UPON ASSESSMENT PT NOTED TO VENANCIO RESTING IN BED SIDE CHAIR- PT A&O X4- CONTINENT OF B/B- SBA WITH TRANSFERS- LCTA/DIMINISHED IN BASES- DYSPNEA NOTED ON EXERTION- VSS, O2 SAT 93% ON 1L VIA NC THIS AM- ABD SOFT/ROUND/NON-TENDER, BS X4 QUADS- LAST BM REPORTED 10/06/19- RUE PICC NOTED C/D/I AND SL-+1 BLE EDEMA NOTED- FAIR PO INTAKE NOTED THIS AM- [address] INDICATED, STRICT I&O IN PLACE- PT DENIES ANY C/O PAIN/DISCOMFORT AT THIS TIME- CALL LIGHT AND PERSONAL BELONGINGS WITH IN REACH- PT MAKES NEEDS KNOWN- ALL NEEDS MET AT THIS TIME-WCTM
--- NOTE | 2019-10-07 12:44 | NUR ---
Nutrition: Pt admitted withNSTEMI. Seen for LOS. 89 y/o. CHF, CKD III, afib. Labs: BUN 79, cr 1.9, BG 113, alb 2.8, prealb 27. 2gm Na diet, poor appetite. On megace. Wt: 172#. Shakes and puddings are ordered between meals. Inadequate oral intake R/T poor appetite AEB advanced age, on megace. Mild risk. Continue supplements.
[2019-10-08] VITALS: BP 102/60
[2019-10-08 04:00] VITALS: BP 130/76
[2019-10-08 05:06] LABS: HEMOGLOBIN 11.8 gm/dL (14.0-18.0); MCH 30.9 pg (26.0-34.0); MCHC 33.8 g/dL (28.0-37.0); MCV 91.4 fL (80.0-100.0); MPV 9.6 fl. (7.2-11.1); RBC 3.83 mil/uL (4.50-6.00); RDW-CV 16.8 % (10.5-14.5); WBC 12.1 thou/uL (4.0-11.0)
[2019-10-08 05:22] LABS: CALCIUM 8.2 mg/dL (8.5-10.1); CREATININE 1.8 mg/dL (0.6-1.3); MAGNESIUM 2.2 mg/dL (1.8-2.4)
--- NOTE | 2019-10-08 07:33 | NUR ---
PT A+OX4. DENIES ANY PAIN OR DISCOMFORT. TRACING AFIB ON MONITOR. PT REPORTS HIS D/C PLAN FOR TODAY. "I'M GOING TO GO TO THE REHAB AT THE FACILITY I LIVE AT IN [place] AND THEN MOVE BACK INTO MY APARTMENT WITH MY AT THE FACILITY. MY SON WILL BE ABLE TO PICK ME UP AND GIVE ME A RIDE HOME."
[2019-10-08 08:09] VITALS: BP 90/63
--- NOTE | 2019-10-08 09:03 | NUR ---
ASSUMED CARE OF PT THIS AM AROUND 0715- CARDAIC MONITOR IN PLACE ORDERED, TRACING SR/BBB/PAC- UPON ASSESSMEN PT NOTED TO BE RESTING IN BED SIDE CHAIR- PT A&O X4- CONTINENT OF B/B- SBA WITH TRANSFERS FOR SAFETY- LCTA/DIMINISHED IN BASES- VSS- ABD SOFT/FLAT/NON-TENDER, BS X4 QUADS- LAST BM REPORTED 10/07/19-RUE PICC NOTED WITH DRESSING C/D/I- GOOD PO INTAKE NOTED THIS AM WITH BREAKFAST- 1500 F/R IN PLACE PRESCRIBED- TRACE EDEMA NOTED TO BLE- PT DENIES ANY C/O PAIN/DISCOMFORT AT THIS TIME- CALL LIGHT AND PERSONAL BELONGINGS WITH IN REACH- ALL NEEDS MET AT THIS TIME-WCTM
[2019-10-08 12:35] VITALS: BP 100/77
--- NOTE | 2019-10-08 14:58 | NUR ---
CONTINUE TO FOLLOW, MET WITH PT THIS AM. WORKING WITH THERAPY AND DOING WELL. EXPLAINED TO PT THAT WE STILL NEED INSURANCE AUTH FOR HIM TO BE ABLE TO GO TO [facility], AND IF THEY DENY, WILL NEED TO GO HOME TO HIS APT. HE UNDERSTOOD AND IS AGREEABLE TO HH IF GOES TO APT. RECEIVED CALL FROM INSURANCE ASKING ADD'L INFO, GIVEN. THEY ARE SENDING TO MD FOR REVIEW AND DECISION. SPOKE WITH URVASHI AT [facility], DISCUSSED POSSIBLE HH IF PT NOT ABLE. THEY GAVE CM LIST OF HH THEY WORK WITH. CALLS TO [facility], [facility], [facility]. NONE OF THEM ARE IN NETWORK WITH PT'S INSURANCE. DID CALL AND FAX TO [facility], AWAITING CALL BACK FROM THEM. DISCUSSED WITH MAGGIE THAT PT COULD DO OUTPT PART B PT/OT AT FACILITY BUT NOT SURE ABOUT NURSING. AWAIT INS AUTH FOR SNF AND WILL PROCEEED, ANTICIPATE DC TOMORROW
[2019-10-09] VITALS: BP 100/55
[2019-10-09 04:00] VITALS: BP 88/53
[2019-10-09 08:28] LABS: HEMATOCRIT 36.6 % (42.0-52.0); HEMOGLOBIN 12.2 gm/dL (14.0-18.0); MCH 30.7 pg (26.0-34.0); MCHC 33.4 g/dL (28.0-37.0); MCV 91.9 fL (80.0-100.0); MPV 9.5 fl. (7.2-11.1); RBC 3.98 mil/uL (4.50-6.00); RDW-CV 16.9 % (10.5-14.5); WBC 10.7 thou/uL (4.0-11.0)
[2019-10-09 08:36] LABS: ALBUMIN 3.1 g/dL (3.4-5.0); CALCIUM 7.5 mg/dL (8.5-10.1); CREATININE 1.6 mg/dL (0.6-1.3); MAGNESIUM 1.8 mg/dL (1.8-2.4); POTASSIUM 4.2 mmol/L (3.5-5.1); TOTAL BILIRUBIN 3.2 mg/dL (<0.1-1.0); TOTAL PROTEIN 6.1 g/dL (6.4-8.2)
[2019-10-09] MEDS ORDERED: PREDNISONE 5 MG5 M1 PO (09:57)
--- NOTE | 2019-10-09 10:00 | NUR ---
FAXED HOME HEALTH REFERRALS TO [facility] [phone] AND [facility] [phone]. CONFIRMED WITH HAY/INTAKE AT [facility] THAT THEY ACCEPTED BUT NEED ORDERS. CONFIRMED WITH BRITTA/INTAKE AT [facility] THAT THEY ACCEPTED BUT NEED ORDERS. CONTACTED [facility]SULT[facility] TO FOLLOW.
[2019-10-09] MEDS ORDERED: POTASSIUM20 PO (10:01)
[2019-10-09] MEDS ORDERED: COLACE100 MG PO (10:10)
[2019-10-09] MEDS ORDERED: ELIQUIS5 MG PO (10:19)
[2019-10-09] MEDS ORDERED: MIRALAX119 GM PO (10:21)
[2019-10-09] MEDS ORDERED: ISOSORBIDE MONO30 M1 PO (10:22)
[2019-10-09] MEDS ORDERED: MEGESTROL ACETA40 MG PO (12:54)
[2019-10-09] MEDS ORDERED: BUMETANIDE 1 MG1 M1 PO (12:54)
--- NOTE | 2019-10-09 14:00 | NUR ---
MET WITH PT, AND SON TO UPDATE ON DC PLAN. INSURANCE DENIED SNF. FOUND HH THAT CAN SEE PT TOMORROW/[facility] . PT IN AGREEMENT. CALLED AND FAXED DC SUMMARY TO [facility] . PT DID NOT QUALIFY FOR O2. SPOKE WITH [facility]. INDP/ASSISTED LIVING PHLEBOTOMIST ASSOCIATE AWARE PT RETURNING WITH HH. NO OTHER NEEDS ID'D
[2019-10-09 15:40] VITALS: BP 101/43
== END 2019-10-09 15:25 | disposition home health service (06) | DRG 280 ==
LOC: M.ERS 00:27 → M.TBA-ER 03:38 → M.2W 03:38
PROVIDERS: Family Medicine; Internal Medicine; Internal Medicine Cardiovascular Disease; Internal Medicine Nephrology; Personal Emergency Response Attendant; Registered Nurse; ADMIT Family Medicine
PROC: 02HV33Z Insertion of Infusion Device into Superior Vena Cava, Percutaneous Approach (ICD-10-PCS; principal; 2019-09-30)
PROC: B548ZZA Ultrasonography of Superior Vena Cava, Guidance (ICD-10-PCS; principal; 2019-09-30)
DX: I21.4 Non-ST elevation (NSTEMI) myocardial infarction (principal); I50.23 Acute on chronic systolic (congestive) heart failure; J98.11 Atelectasis; I13.0 Hypertensive heart and chronic kidney disease with heart failure and stage 1 through stage 4 chronic kidney disease, or unspecified chronic kidney disease; N17.9 Acute kidney failure, unspecified; E87.3 Alkalosis; Z96.653 Presence of artificial knee joint, bilateral; K57.90 Diverticulosis of intestine, part unspecified, without perforation or abscess without bleeding; I25.5 Ischemic cardiomyopathy; I25.10 Atherosclerotic heart disease of native coronary artery without angina pectoris; N18.3 Chronic kidney disease, stage 3 (moderate); E78.5 Hyperlipidemia, unspecified; I48.0 Paroxysmal atrial fibrillation; I44.1 Atrioventricular block, second degree; I49.3 Ventricular premature depolarization; T50.2X5A Adverse effect of carbonic-anhydrase inhibitors, benzothiadiazides and other diuretics, initial encounter; Y92.89 Other specified places as the place of occurrence of the external cause; Z95.1 Presence of aortocoronary bypass graft; Z79.899 Other long term (current) drug therapy; Z90.49 Acquired absence of other specified parts of digestive tract; Z79.82 Long term (current) use of aspirin; Z88.0 Allergy status to penicillin; Z95.5 Presence of coronary angioplasty implant and graft; Z83.3 Family history of diabetes mellitus; Z80.0 Family history of malignant neoplasm of digestive organs; Z87.891 Personal history of nicotine dependence